=== PATIENT | female | born 1995 | race Caucasian/White ===

== ENCOUNTER → 2017-12-16 | Outpatient (CLI) | payer OTHER ==
[~2017-12-16] MED LIST: CIPRO250 MG PO; GABAPENTIN100 M1 PO; PYRIDIUM200 MG PO; ZITHROMAX Z PA250 MG PO; [UNRECOGNIZED DRUG - CODE] TP; [UNRECOGNIZED DRUG - OTHER]
[2017-12-16 09:50] LABS: HEMATOCRIT 41.6 % (37.0-47.0); HEMOGLOBIN 13.8 g/dl (12.0-16.0); MEAN CELL VOLUME 90.6 fl (81.0-99.0); MEAN CORPUSCULAR HGB 30.1 pg (27.0-31.0); MEAN CORPUSCULAR HGB CONC 33.2 g/dl (33.0-37.0); MEAN PLATELET VOLUME 10.4 fl (9.6-12.3); PLATELET COUNT AUTOMATED 226 10*3/uL (130-400); RED BLOOD COUNT 4.59 10*6/uL (4.10-5.10); RED CELL DISTRI WIDTH 12.9 % (0-14.5); WHITE BLOOD COUNT 5.9 10*3/uL (4.8-10.8)
[2017-12-16 10:18] LABS: ALBUMIN 3.9 gm/dl (3.1-4.5); ALKALINE PHOSPHATASE 49 U/L (45-117); BUN 11 mg/dl (7-24); CHLORIDE 105 mmol/L (98-107); CREATININE 0.75 mg/dL (0.55-1.02); FREE T4 0.94 ng/dl (0.76-1.46); IRON 140 ug/dL (50-170); POTASSIUM 3.9 mmol/L (3.5-5.1); SGOT/AST 18 IU/L (3-35); SGPT/ALT 20 U/L (12-78); SODIUM 141 mmol/L (136-145); TOTAL IRON BINDING CAPACITY 388 ug/dl (250-450); TOTAL PROTEIN 7.1 gm/dL (6.4-8.2)
[2017-12-16 10:22] LABS: THYROID STIM HORMONE (HS) 0.925 uIU/ml (0.358-4.75)
[2017-12-16 10:39] LABS: ATYPICAL LYMPHS 14 % (0-0); BASOPHILS 1 % (0-1); TOTAL CELLS COUNTED 100 #CELLS
[2017-12-16 10:40] LABS: PLATELET SUFFICIENCY NORMAL (NORMAL)
[2017-12-16 11:08] LABS: FERRITIN 26.5 ng/mL (10.0-291.0)
== END | disposition home or self-care (01) ==
LOC: LAB 09:30
PROVIDERS: Psychiatry & Neurology Neurology
DX: R53.83 Other fatigue (principal); R41.89 Other symptoms and signs involving cognitive functions and awareness; R23.1 Pallor; R68.89 Other general symptoms and signs; R63.4 Abnormal weight loss